=== PATIENT | male | born 1940 | race Caucasian/White ===

== ENCOUNTER 2016-05-29 11:44 | Day surgery (SDC) | payer MEDICARE, BC ==
[~2016-05-29 11:44] MED LIST: METOCLOPRAMIDE HCL 5 MG/ML VIAL IV PRN; NORMAL SALINE 1,000 ML IV PRN; ONDANSETRON HCL/PF 2 MG/ML VIAL IV PRN; oxyCODONE HCL/ACETAMINOPHEN 1 TAB TABLET PO PRN
[2016-05-29] MEDS ORDERED: NORMAL SALINE 1,000 ML IV ONE (12:45)
--- NOTE | 2016-05-29 13:28 | OR ---
Operative Report - Dictated Report Narrative: Procedure performed: TRUS guided prostate biopsy Anesthesia: Mac anesthesia Preoperative diagnosis : elevated PSA Postoperative diagnosis: Same Description of procedure: Preoperative antibiotics administered. Consent obtained. Patient positioned in the left lateral decubitus position. Probe inserted. Measurements taken. Prostate volume: 35 grams Biopsies were then obtained from either side directed laterally from the base, mid, and apical portions of the gland. Total biopsies right: 6 Total biopsies left: 6 Findings: no concerning hypo/hyperechoic areas, normal SV's EBL: 0cc Specimen: prostate Condition: tolerated procedure Follow up: If negative 6 months with PSA/UA. If positive two-week counseling
[2016-05-29 15:02] VITALS: BP 136/80
== END 2016-05-29 11:45 | disposition home or self-care (01) ==
LOC: AMB 11:44
PROVIDERS: ATTEND Urology
PROC: 0V903ZX Drainage of Prostate, Percutaneous Approach, Diagnostic (ICD-10-PCS; principal; 2016-05-29 13:00)
DX: C61 Malignant neoplasm of prostate (principal); Z68.30 Body mass index [BMI] 30.0-30.9, adult